=== PATIENT | female | born 1950 | race Caucasian/White ===

== ENCOUNTER 2019-07-22 11:25 | Emergency (ER) | payer MEDICARE, MEDICAID ==
[~2019-07-22] VITALS: Ht 157.5 cm; Wt 71.0 kg
[2019-07-22 11:27] VITALS: BP 120/90
[2019-07-22] MEDS ORDERED: PENI500T2 PO (11:54)
== END 2019-07-22 12:04 | disposition home or self-care (01) ==
LOC: ER 11:26
DX: K08.89 Other specified disorders of teeth and supporting structures (principal); Z88.7 Allergy status to serum and vaccine
CPT/HCPCS: 99283